=== PATIENT | female | born 1970 | race American Indian/Alaskan Native ===

== ENCOUNTER 2021-05-19 15:25 | Observation (INO) | payer BC, MEDICAID ==
[2021-05-19] MEDS ORDERED: Morphine 2 MG/ML SYRINGE IVPUSH PRN (15:42)
[2021-05-19] MEDS ORDERED: Acetaminophen 325 MG Tab PO PRN (15:42)
[2021-05-19] MEDS ORDERED: Polyethylene Glycol 3350 Powder 17 GM Packet PO PRN (15:42)
[2021-05-19] MEDS ORDERED: Ondansetron 4 MG/2 ML SDV IV PRN (15:42)
[2021-05-19] MEDS ORDERED: Sodium Chloride 0.9% 10 ML Syringe FLUSH PRN (15:42)
[2021-05-19] MEDS ORDERED: Enoxaparin 40 MG/0.4 ML Syringe SUBCUT SCH (15:45)
[2021-05-19] MEDS ORDERED: Nitroglycerin 0.4 MG Tab.SL SL PRN (15:45)
[2021-05-19] MEDS ORDERED: 50% Dextrose in Water 50 ML Syringe IV PRN (16:35)
[2021-05-19] MEDS ORDERED: Glucose Gel 15 GM in 37.5 GM Tube PO PRN (16:35)
[2021-05-19] MEDS ORDERED: Non-Formulary Medication 1 Each (Semaglutide [Ozempic] 1 MG/0.75 ML Pen.Injctr) SQ SCH (16:45)
[2021-05-19] MEDS ORDERED: Insulin Lispro 100 Unit/ML 3 ML KwikPen SUBCUT SCH (17:00)
[2021-05-19] MEDS: Magnesium Sulfate/Water 2 GM in Premix Bag 1 BAG IV SCH ×2 (17:20→21:54)
[2021-05-19] MEDS: Magnesium Oxide 400 MG Tab PO SCH ×2 (17:29→20:45)
[2021-05-19] MEDS: metFORMIN 500 MG Tab PO SCH ×2 (17:29→17:55)
[2021-05-19] MEDS: Insulin Lispro 100 Unit/ML 3 ML KwikPen SUBCUT SCH ×2 (17:51→20:47)
[2021-05-19] MEDS ORDERED: Melatonin 3 MG Tab PO PRN (20:29)
[2021-05-19] MEDS: Carvedilol 12.5 MG Tab PO SCH (20:45)
[2021-05-19] MEDS: Apixaban 5 MG Tab PO SCH (20:45)
[2021-05-19] MEDS ORDERED: Non-Formulary Medication 1 Each (Melatonin [Melatonin] 5 MG Tablet) PO SCH (21:00)
[2021-05-20] MEDS: Magnesium Sulfate/Water 2 GM in Premix Bag 1 BAG IV SCH (04:02)
[2021-05-20] MEDS: Insulin Lispro 100 Unit/ML 3 ML KwikPen SUBCUT SCH ×2 (07:52→11:49)
[2021-05-20] MEDS: Carvedilol 12.5 MG Tab PO SCH (08:02)
[2021-05-20] MEDS: Magnesium Oxide 400 MG Tab PO SCH (08:04)
[2021-05-20] MEDS: Apixaban 5 MG Tab PO SCH (08:07)
[2021-05-20] MEDS: metFORMIN 500 MG Tab PO SCH (08:23)
[2021-05-20] MEDS ORDERED: atorvaSTATin 20 MG Tab PO SCH (09:00)
[2021-05-20] MEDS ORDERED: Insulin Glargine,Human Rec. Analog 100 Units/ML 3 ML Pen SUBCUT SCH ×2 (09:00)
[2021-05-20] MEDS ORDERED: Clopidogrel 75 MG Tab PO SCH (09:00)
[2021-05-20] MEDS ORDERED: Pantoprazole 40 MG Tab.CR PO SCH (09:00)
[2021-05-20] MEDS ORDERED: Isosorbide Mononitrate 30 MG Tab.ER PO SCH (09:00)
[2021-05-24] MEDS ORDERED: SEMAGLUTIDE 0.5 MG/0.5 ML SUBCUT SCH (09:00)
== END 2021-05-20 12:35 | disposition home or self-care (01) ==
LOC: JP.ICU 15:25
PROVIDERS: ADMIT Hospitalist; ATTEND Hospitalist
DX: R07.9 Chest pain, unspecified (principal); I25.10 Atherosclerotic heart disease of native coronary artery without angina pectoris; E11.9 Type 2 diabetes mellitus without complications; I10 Essential (primary) hypertension; I48.91 Unspecified atrial fibrillation; Z88.8 Allergy status to other drugs, medicaments and biological substances; Z88.5 Allergy status to narcotic agent; Z95.5 Presence of coronary angioplasty implant and graft; Z95.1 Presence of aortocoronary bypass graft; Z79.82 Long term (current) use of aspirin; Z79.84 Long term (current) use of oral hypoglycemic drugs; Z79.01 Long term (current) use of anticoagulants; Z79.4 Long term (current) use of insulin; Z79.02 Long term (current) use of antithrombotics/antiplatelets; Z79.899 Other long term (current) drug therapy
CPT/HCPCS: 36415; 82947; 83735; 84484; 96365; 96366; 96376; A9270-GY; G0378; J1815; J1815-GY; J3475